=== PATIENT | female | born 1945 | race Two or more races ===

== ENCOUNTER 2020-11-20 10:14 | Outpatient (CLI) | payer MEDICARE, OTHER | END 2020-11-20 23:59 | disposition home or self-care (01) | LOC: LAB 10:14 | PROVIDERS: ATTEND Specialist | DX: Z01.812 Encounter for preprocedural laboratory examination (principal); Z20.822 Contact with and (suspected) exposure to COVID-19 | CPT/HCPCS: C9803; U0003 ==

== ENCOUNTER 2020-11-25 09:07 | Inpatient (IN) | payer MEDICARE, OTHER ==
[~2020-11-25] VITALS: Ht 152.4 cm; Wt 79.8 kg
[2020-11-25] MEDS ORDERED: FENTANYL PF 250MCG/5ML AMPUL ONE ×2 (10:36)
[2020-11-25] MEDS ORDERED: HYDROMORPHONE INJ 2 MG/ML DISP.SYRIN ONE (10:37)
[2020-11-25] MEDS ORDERED: MIDAZOLAM HCL 2 MG/2ML VIAL ONE (10:37)
[2020-11-25] MEDS ORDERED: BUPIVACAINE 0.5 % PF 150 MG/30 ML VIAL ONE (10:49)
[2020-11-25] MEDS ORDERED: TRANEXAMIC ACID 3,000 MG in SODIUM CHLORIDE IRRIG SOLUTION 70 ML IR ONE (12:30)
[2020-11-25] MEDS ORDERED: HYDROMORPHONE 1 MG/1 ML DISP.SYRIN ONE (13:57)
[2020-11-25] MEDS ORDERED: MAG HYDROX/AL HYDROX/SIMETH 30 ML UDC PO PRN (15:30)
[2020-11-25] MEDS ORDERED: ONDANSETRON HCL/PF 4 MG/2 ML VIAL IV PRN (15:30)
[2020-11-25] MEDS ORDERED: CLONIDINE HCL 0.1 MG TABLET PO PRN (15:30)
[2020-11-25] MEDS ORDERED: TRAZODONE 50 MG TABLET PO PRN (15:30)
[2020-11-25] MEDS ORDERED: diphenhydrAMINE HCL 25 MG CAPSULE PO PRN (15:30)
[2020-11-25] MEDS ORDERED: ALBUTEROL FS 2.5 MG/0.5 ML VIAL.NEB NEB PRN (15:30)
[2020-11-25] MEDS ORDERED: oxyCODONE IR immediate release 5 MG PO PRN (15:30)
[2020-11-25] MEDS ORDERED: HYDROMORPHONE 1 MG/1 ML DISP.SYRIN IV PRN (15:30)
--- NOTE | 2020-11-25 15:30 | NUR ---
MS RN NOTE PATIENT IS ADMITTED FOR DAY SURGERY, PATIENT HAS RIGHT KNEE REPLACEMENT, TRANSFERRED FROM OR, PATIENT IS STABLE VITALS SIGNS ARE WITHIN NORMAL LIMITS, PATIENT IS ON ROOM AIR, IV FLUIDS ARE RUNNING. PATIENT HAS IV ACCES ON RIGHT AC ARTIE 20. SAFETY PRECAUTIONS ARE ON, BED IS LOCKED IN THE LOWEST POSITION WITH SIDE RAILS UP. CALL LIGHT WITHIN REACH, WILL CONTINUE TO MONITOR.
[2020-11-25 16:00] VITALS: BP 110/55
[2020-11-25] MEDS ORDERED: ZOLPIDEM TARTRATE 5 MG TABLET PO PRN (16:30)
[2020-11-25] MEDS: LISINOPRIL (10MG) 10 MG TABLET PO SCH (17:00)
[2020-11-25] MEDS: IV LR 1000 ML 1,000 ML IV PRN (17:02)
[2020-11-25] MEDS: DOCUSATE SODIUM 100 MG CAPSULE PO SCH (17:35)
--- NOTE | 2020-11-25 19:30 | NUR ---
MS RN OPENING NOTE RECEIVED PT AWAKE IN BED. A/O X4, [place]-SPEAKING. S/P RIGHT KNEE REPLACEMENT. PT IS STABLE ON ROOM AIR. NO SOB OR S/S OF RESPIRATORY DISTRESS NOTED. IV ACCESS NOTED IN RIGHT AC #20, INFUSING LR AT 100 ML/HR, INTACT AND PATENT. SAFETY MEASURES MAINTAINED. BED IN LOWEST LOCKED POSITION, HOB ELEVATED, SIDE RAILS UP X2. CALL LIGHT AND TABLE WITHIN REACH. WILL CONTINUE WITH PLAN OF CARE.
--- NOTE | 2020-11-25 19:38 | NUR ---
MS RN CLOSING NOTE PATIENT IS IN THE ROOM RESTING, PATIENT IS IN NO ACUTE DISTRESS. PATIENT IS HERE FRO DAY SURGERY. SAFETY PRECAUTIONS ARE ON, BED IS LOCKED IN THE LOWEST POSITION WITH SIDE RAILS UP. CALL LIGHT WITHIN REACH, WILL CONTINUE TO MONITOR.
[2020-11-25 20:00] VITALS: BP 107/62
[2020-11-25] MEDS: ANCEF 1 GM/50 ML D5W IV SCH (20:43)
[2020-11-25] MEDS ORDERED: FAMOTIDINE (20 MG) 20 MG TABLET PO SCH (21:00)
[2020-11-25] MEDS: PANTOPRAZOLE 40 MG TABLET.DR PO SCH (21:29)
[2020-11-26] MEDS: ANCEF 1 GM/50 ML D5W IV SCH (04:41)
[2020-11-26] MEDS: IV LR 1000 ML 1,000 ML IV PRN (05:35)
[2020-11-26] MEDS: oxyCODONE IR immediate release 5 MG PO PRN ×4 (05:47→16:42)
--- NOTE | 2020-11-26 06:24 | NUR ---
MS RN CLOSING NOTE PT IS AWAKE IN BED. A/O X4, [place]-SPEAKING. S/P RIGHT KNEE REPLACEMENT. PT IS STABLE ON ROOM AIR. NO SOB OR S/S OF RESPIRATORY DISTRESS NOTED. IV ACCESS IS INTACT, PATENT, AND FLUSHING WELL. ALL NEEDS HAVE BEEN MET. PAIN MANAGEMENT ADMINISTERED PER ORDER. SAFETY MEASURES PRECAUTIONS MAINTAINED AT ALL TIMES. BED IN LOWEST LOCKED POSITION, HOB ELEVATED, SIDE RAILS UP X2. CALL LIGHT AND TABLE WITHIN REACH. WILL ENDORSE TO ONCOMING NURSE FOR TIFFANIE.
--- NOTE | 2020-11-26 06:30 | NUR ---
DR. TRACEY CALLED AND WAS UPDATED ON PT'S CONDITION. NO NEW ORDERS AT THIS TIME.
[2020-11-26 07:33] LABS: CARBON DIOXIDE 27 mmol/L (21-32); CHLORIDE 102 mmol/L (98-107); CREATININE 0.5 mg/dL (0.6-1.3); GLUCOSE 105 mg/dL (74-106); POTASSIUM 4.2 mmol/L (3.5-5.1); SODIUM SERUM 134 mmol/L (136-145); UREA NITROGEN, BLOOD 10 mg/dL (7-18)
[2020-11-26 07:35] LABS: BASOPHILS % (AUTO) 0.1 % (0.0-2.0); EOSINOPHILS % (AUTO) 0.2 % (0.0-6.0); HEMATOCRIT 37 % (33-45); HEMOGLOBIN 12.4 g/dL (11.5-14.8); LYMPHOCYTES # (AUTO) 1.2 K/uL (0.8-4.8); LYMPHOCYTES % (AUTO) 10.1 % (20.0-44.0); MEAN CORPUSCULAR HGB CONC 33 g/dl (31.0-36.0); MEAN CORPUSCULAR VOLUME 97 fL (82-100); MONOCYTES # (AUTO) 0.8 K/uL (0.1-1.30); MONOCYTES % (AUTO) 6.3 % (2.0-12.0); NEUTROPHILS # (AUTO) 10.2 K/uL (1.8-8.9); NEUTROPHILS % (AUTO) 83.3 % (43.0-81.0); PLATELET COUNT (AUTO) 269 K/uL (150-450); RED BLOOD CELL COUNT(AUTO) 3.86 MIL/uL (4.0-5.2); WHITE BLOOD COUNT (AUTO) 12.3 K/uL (4.3-11.0)
--- NOTE | 2020-11-26 07:40 | NUR ---
MS RN OPENING NOTE RECEIVED PATIENT LYING IN BED, AWAKE. 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 A/O X4, [place]ISH-SPEAKING BUT UNDERSTANDS LITTLE [place]. S/P RIGHT KNEE REPLACEMENT FROM 11/25. STABLE ON ROOM AIR - NO SOB OR DISTRESS/DISCOMFORT NOTED. IV ACCESS TO RIGHT AC #20 - RUNNING LR @ 100ML/HR. SAFETY PRECAUTIONS IN PLACE. CALL LIGHT WITHIN REACH. WILL CONTINUE TO MONITOR.
[2020-11-26 08:00] VITALS: BP 129/70
[2020-11-26] MEDS ORDERED: TRAZ-257 PO (08:03)
[2020-11-26] MEDS ORDERED: GABA-532 PO (08:03)
[2020-11-26] MEDS ORDERED: SIMV-46 PO (08:03)
[2020-11-26] MEDS ORDERED: OMEP40CA21 PO (08:03)
[2020-11-26] MEDS: DOCUSATE SODIUM 100 MG CAPSULE PO SCH ×2 (08:11→16:37)
[2020-11-26] MEDS: ASPIRIN EC 325 MG TABLET.DR PO SCH (08:11)
[2020-11-26] MEDS: LISINOPRIL (10MG) 10 MG TABLET PO SCH ×2 (08:20→16:37)
--- NOTE | 2020-11-26 08:20 | NUR ---
DID NOT ADMINISTER LISINOPRIL - BP 129/70
[2020-11-26] MEDS ORDERED: ONDANSETRON HCL/PF 4 MG/2 ML VIAL IVP PRN (09:00)
[2020-11-26] MEDS ORDERED: HYDROCODONE/APAP 10/325MG TABLET PO PRN ×2 (09:00)
[2020-11-26] MEDS ORDERED: TEMAZEPAM 15 MG CAPSULE PO PRN (09:00)
[2020-11-26] MEDS ORDERED: Z GUARD REMEDY 2 OZ OINT TP PRN (09:00)
[2020-11-26] MEDS ORDERED: MAGNESIUM HYDROXIDE 30 ML UDC PO PRN (09:00)
[2020-11-26] MEDS ORDERED: MAG HYDROX/AL HYDROX/SIMETH 30 ML UDC PO PRN (09:00)
[2020-11-26] MEDS ORDERED: ACETAMINOPHEN 325 MG TABLET PO PRN ×2 (09:00)
[2020-11-26] MEDS ORDERED: IV NS 0.9% 1,000 ML IV PRN (09:00)
[2020-11-26] MEDS ORDERED: Medication Not On Formulary EA (Omeprazole 40 MG) PO SCH (09:00)
[2020-11-26] MEDS ORDERED: GABAPENTIN 100 MG CAPSULE PO SCH (09:00)
[2020-11-26] MEDS ORDERED: HYDROMORPHONE 1 MG/1 ML DISP.SYRIN IV PRN ×2 (09:00)
[2020-11-26 09:20] LABS: ALBUMIN 3.2 g/dL (3.4-5.0); BILIRUBIN,DIRECT 0.2 mg/dL (0.0-0.2); BILIRUBIN,TOTAL 0.8 mg/dL (0.2-1.0); MAGNESIUM 1.8 mg/dL (1.8-2.4); TOTAL PROTEIN, SERUM 5.9 g/dL (6.4-8.2)
[2020-11-26 09:49] LABS: THYROID STIMULATING HORMONE 0.612 uIU/mL (0.358-3.74)
[2020-11-26 16:00] VITALS: BP 143/76
--- NOTE | 2020-11-26 18:50 | NUR ---
MS RN CLOSING NOTE PATIENT CURRENTLY LYING IN BED, AWAKE, WATCHING TV. A/O X4, MACANESE-SPEAKING BUT UNDERSTANDS LITTLE ROMANIAN. S/P RIGHT KNEE REPLACEMENT FROM 11/25. STABLE ON ROOM AIR - NO SOB OR DISTRESS/DISCOMFORT NOTED. PT EVAL DONE TODAY - PATIENT WAS ABLE TO WALK AROUND HER ROOM WITH WALKER AND USED CPM MACHINE. IV ACCESS TO RIGHT AC #20 - RUNNING NS @ 70ML/HR. SAFETY PRECAUTIONS IN PLACE. CALL LIGHT WITHIN REACH. WILL ENDORSE TO MINCING MACHINE OPERATOR NURSE FOR TIFFANIE.
--- NOTE | 2020-11-26 19:30 | NUR ---
MS/RN OPENING NOTE RECEIVED PATIENT RESTING IN BED. AWAKE, ALERT AND ORIENTED X 4. ABLE TO MAKE NEEDS KNOWN. NO COMPLAINTS OF PAIN AT THIS TIME. IV ACCESS TO RIGHT AC #20G INTACT AND PATENT. CONTINUES ON IV NS 0.9% @ 70ML/HR. SURGICAL DRESSING TO RIGHT KNEE CLEAN, DRY AND INTACT. CALL LIGHT WITHIN REACH. ASPIRATION, FALL AND SAFETY PRECAUTIONS MAINTAINED. WILL CONTINUE TO MONITOR.
[2020-11-26 20:00] VITALS: BP 135/74
[2020-11-26] MEDS: PANTOPRAZOLE 40 MG TABLET.DR PO SCH (21:35)
--- NOTE | 2020-11-26 21:36 | NUR ---
MS/RN NOTE PATIENT WITH C/O INSOMNIA. ADMINISTERED PRN TRAZODONE WITH PENDING EFFECT.
[2020-11-26] MEDS ORDERED: SIMVASTATIN 20 MG TABLET PO SCH (22:00)
--- NOTE | 2020-11-26 23:47 | NUR ---
MS/RN NOTE PATIENT CURRENTLY SLEEPING. WILL CONTINUE TO MONITOR.
[2020-11-27] MEDS: oxyCODONE IR immediate release 5 MG PO PRN (05:25)
--- NOTE | 2020-11-27 06:30 | NUR ---
MS/RN CLOSING NOTE PATIENT CURRENTLY RESTING IN BED. AWAKE, ALERT AND ORIENTED X 4. ABLE TO MAKE NEEDS KNOWN. DENIES PAIN AT THIS TIME. IV TO LEFT WRIST INFILTRATE WITH SWELLING TO RIGHT UPPER EXTREMITY. IVF STOPPED, RUE ELEVATED, ICE APPLIED. MD TRACEY CALLED WITH NEW ORDERS TO D/C IVF AND START CARDIAC DIET. ORDERS IMPUTED AND CARRIED OUT. PATIENT RESTING COMFORTABLY IN BED. CALL LIGHT WITHIN REACH. ASPIRATION, FALL AND SAFETY PRECAUTIONS MAINTAINED. WILL CONTINUE TO MONITOR.
[2020-11-27 07:15] LABS: BASOPHILS % (AUTO) 0.1 % (0.0-2.0); EOSINOPHILS % (AUTO) 0.3 % (0.0-6.0); HEMATOCRIT 39 % (33-45); HEMOGLOBIN 13.6 g/dL (11.5-14.8); LYMPHOCYTES # (AUTO) 0.9 K/uL (0.8-4.8); LYMPHOCYTES % (AUTO) 8.8 % (20.0-44.0); MEAN CORPUSCULAR HGB CONC 35 g/dl (31.0-36.0); MEAN CORPUSCULAR VOLUME 95 fL (82-100); MONOCYTES % (AUTO) 9.9 % (2.0-12.0); NEUTROPHILS # (AUTO) 8.6 K/uL (1.8-8.9); NEUTROPHILS % (AUTO) 80.9 % (43.0-81.0); PLATELET COUNT (AUTO) 243 K/uL (150-450); RED BLOOD CELL COUNT(AUTO) 4.09 MIL/uL (4.0-5.2); WHITE BLOOD COUNT (AUTO) 10.6 K/uL (4.3-11.0)
[2020-11-27] MEDS ORDERED: PANTOPRAZOLE 40 MG TABLET.DR PO SCH (07:30)
[2020-11-27 07:33] LABS: CHOLESTEROL 158 mg/dL (<200); HDL CHOLESTEROL 54 mg/dL (40-60); LDL 91 mg/dL (0-99); TRIGLYCERIDES 70 mg/dL (30-150)
[2020-11-27 07:36] LABS: CALCIUM, SERUM 9.2 mg/dL (8.5-10.1); CARBON DIOXIDE 23 mmol/L (21-32); CHLORIDE 94 mmol/L (98-107); CREATININE 0.4 mg/dL (0.6-1.3); GLUCOSE 125 mg/dL (74-106); MAGNESIUM 1.9 mg/dL (1.8-2.4); PHOSPHORUS 2.6 mg/dL (2.5-4.9); POTASSIUM 3.7 mmol/L (3.5-5.1); SODIUM SERUM 126 mmol/L (136-145); UREA NITROGEN, BLOOD 6 mg/dL (7-18)
--- NOTE | 2020-11-27 07:40 | NUR ---
MS RN OPENING NOTE RECEIVED PATIENT LYING IN BED, AWAKE. A/O X4, [place] KORE[place]-SPEAKING BUT UNDERSTANDS LITTLE [place]. STABLE ON ROOM AIR - NO SOB OR DISTRESS/DISCOMFORT NOTED. IV ACCESS TO LEFT WRIST #20 - SALINE LOCKED. FLUIDS D/C'D. SAFETY PRECAUTIONS IN PLACE. CALL LIGHT WITHIN REACH. WILL CONTINUE TO MONITOR.
[2020-11-27 08:00] VITALS: BP 137/77
[2020-11-27 08:39] VITALS: BP 137/77
[2020-11-27] MEDS: DOCUSATE SODIUM 100 MG CAPSULE PO SCH (08:39)
[2020-11-27] MEDS: ASPIRIN EC 325 MG TABLET.DR PO SCH (08:39)
[2020-11-27] MEDS: LISINOPRIL (10MG) 10 MG TABLET PO SCH (08:39)
[2020-11-27] MEDS ORDERED: IV NS 0.9% 250 ML IV ONE (11:00)
[2020-11-27] MEDS ORDERED: CLON0.1T PO (11:17)
[2020-11-27] MEDS ORDERED: ACET325T53 PO (11:17)
[2020-11-27] MEDS ORDERED: DOCU-270 PO (11:17)
[2020-11-27] MEDS ORDERED: LISI10TA29 PO (11:17)
[2020-11-27] MEDS ORDERED: PANT40TA2 PO (11:17)
[2020-11-27] MEDS ORDERED: ASPI-869 PO (11:17)
--- NOTE | 2020-11-27 13:27 | NUR ---
MS RN NOTE DR. TRACEY ORDERED IV BOLUS FOR LOW SODIUM LEVEL. IV INFILTRATED AFTER HALF OF A 500ML BAG. PATIENT DID NOT WANT TO BE POKED AGAIN FOR ANOTHER IV. SERUM SODIUM LEVEL AT 124. MD AWARE. CHARGE NURSE AWARE. PATIENT TO DISCHARGE AT 1400.
--- NOTE | 2020-11-27 15:10 | NUR ---
MS VENEER SHEET REPAIRER NOTE PATIENT DISCHARGED VIA PRIVATE CAR. PATIENT STABLE. A/O X4. STABLE ON ROOM AIR. NO SOB NOTED, NO PAIN NOTED AT THIS TIME. PATIENT AND DAUGHTER AT BEDSIDE - EDUCATED ON ALL EXITCARE AND GIVEN COPIES OF DISCHARGE PAPERWORK. PATIENT AND PATIENT'S DAUGHTER VERBALIZED UNDERSTANDING. DIMA HERNANDEZ - AT BEDSIDE, GAVE DISCHARGE INSTRUCTIONS TO PATIENT WELL. KNEE DRESSING/BANDAGE INTACT, CLEAN AND DRY. IV ACCESS REMOVED. WRISTBAND REMOVED. PATIENT ESCORTED TO LOBBY BY MARIA ELENA NIECY WITH DAUGHTER VIA WHEELCHAIR.
== END 2020-11-27 15:15 | disposition home health service (06) | DRG 470 ==
LOC: DS 09:07 → MED 15:26
PROVIDERS: ADMIT Nurse Practitioner Acute Care; ATTEND Nurse Practitioner Acute Care
PROC: 0SRC0J9 Replacement of Right Knee Joint with Synthetic Substitute, Cemented, Open Approach (ICD-10-PCS; principal; 2020-11-25)
DX: M17.11 Unilateral primary osteoarthritis, right knee (principal); I10 Essential (primary) hypertension; E03.9 Hypothyroidism, unspecified; E78.5 Hyperlipidemia, unspecified; F32.9 Major depressive disorder, single episode, unspecified; D72.829 Elevated white blood cell count, unspecified; G47.00 Insomnia, unspecified; Z90.710 Acquired absence of both cervix and uterus; M19.90 Unspecified osteoarthritis, unspecified site; Z79.899 Other long term (current) drug therapy; K29.70 Gastritis, unspecified, without bleeding
CPT/HCPCS: 36415; 80048-TC; 80061-TC; 80076-TC; 83735-TC; 84100-TC; 84295-TC; 84443-TC; 85025-TC; 86850-TC; 88305-TC; 88311-TC; 97110-TC; 97112-TC; 97116-TC; 97530-TC; 97760-TC; A4217; C1713; C1776; G0378; J0690; J1170; J2250; J2704; J2765; J3010; J3490; J7030; J7040; J7060; J7120